=== PATIENT | male | born 1980 | race Caucasian/White ===

== ENCOUNTER 2018-09-25 04:36 | Inpatient (IN) | payer SELFPAY ==
[2018-09-25] VITALS (13 sets, daily range): BP systolic 129–170; BP diastolic 70–104
[~2018-09-25] VITALS: Ht 187.9 cm; Wt 119.7 kg
--- NOTE | ~2018-09-25 | O ---
[place], [place] OPERATIVE NOTE NAME: NBA ZUÑIGA UNIT #: [id number] ROOM: 404 DOCTOR: JERONIMO RONDON MD BIRTHDATE: [birth year] DOS: 09/25/2018 PREOPERATIVE DIAGNOSIS: Acute appendicitis. POSTOPERATIVE DIAGNOSIS: Acute appendicitis. PROCEDURE: Laparoscopic appendectomy. SURGEON: Jeronimo Rondon MD EQUAL OPPORTUNITY COUNSELOR: WINSOME. ANESTHESIA: General with endotracheal intubation. INDICATIONS: This is a 37-year-old male admitted with right lower quadrant abdominal pain and a CAT scan that showed acute appendicitis. It was decided to take the patient to the operating room for the above-mentioned procedure. The procedure and its complications were explained to the patient in detail preoperatively. Complications that were discussed included but were not limited to bleeding, infection, hematoma/seroma/abscess formation, prolonged postoperative pain, damage to lying vital structures, inadvertent injury to surrounding vital structures, incisional hernia formation and he agreed to proceed. DESCRIPTION OF PROCEDURE: After identifying the patient, the patient was brought to the operating suite and laid in the supine position. After time-out procedure was called, general anesthesia was induced and the parts were then painted and draped in the usual sterile fashion. An incision was made in a transverse fashion below the umbilicus. The skin and the subcutaneous tissue were incised in the line of the incision. The fascia was incised vertically and 2 stay sutures were taken on either side. The peritoneum was opened and a 12-mm Zaida port was introduced into the peritoneal cavity after pneumoperitoneum was created. Under direct vision, a left lower quadrant incision of 10 mm and a suprapubic incision of 5 mm were made and appropriate size ports were introduced. There were numerous adhesions between the anterior abdominal wall and omentum from previous hernia surgery and these were taken down with the help of blunt and sharp dissection. Thereafter, the appendix was visualized and held up with the help of an Endo Norman forceps. The mesoappendix and the appendicular base were then stapled across with the help of Endo-BRANDON vascular stapler (45 mm). The specimen was placed in an EndoCatch bag and removed from the peritoneal cavity. This was sent for histopathological diagnosis. Hemostasis was achieved in the region of the appendix and there was no bleeding seen. Thereafter, after hemostasis was confirmed all around, the suprapubic and the left lower quadrant ports were removed under direct vision and there was no bleeding seen. The umbilical port was also removed and the pneumoperitoneum was decompressed. Two stay sutures were tied together and an additional 0 Vicryl suture was taken to close the fascial defect. The edges of the skin were infiltrated with 1% plain lidocaine and approximated with the help of 4-0 Vicryl in a subcuticular running fashion. A Samuel catheter was removed and the patient was brought back to the recovery room in a stable fashion. There were no [place], [place] OPERATIVE NOTE NAME: NBA ZUÑIGA UNIT #: [id number] ROOM: [facility] DOCTOR: JERONIMO RONDON MD BIRTHDATE: [address] Jeronimo Rondon, the attending surgeon, was present throughout the operating case. Jeronimo Rondon MD CM:OPRECORD:OPERATIVE NOTE [id number] JERONIMO RONDON MD 09/25/18 1501 interface
--- NOTE | ~2018-09-25 | PR ---
[place], [place] PROGRESS NOTE NAME: NBA ZUÑIGA UNIT #: [id number] ROOM: 404 DOCTOR: JESSA ACOSTA MD BIRTHDATE: [birth year] DOS: 09/26/2018 SUBJECTIVE: This is a patient who has been admitted to the hospital with history of acute appendicitis and has undergone laparoscopy, appendectomy yesterday. The patient is feeling good. He denies any chest pain, no difficulty breathing, no nausea, no vomiting and is lying very comfortably in bed, but he has not passed any bowel movement and he has not passed any flatus. OBJECTIVE: VITAL SIGNS: Temperature 97.9, pulse is 80, respiration is 18, and pulse oximetry is 99%. Blood pressure is 110/70. ENT: Unremarkable. NECK: No glandular enlargement in the neck. CHEST: Clear. HEART: Regular. ABDOMEN: Soft with bowel movement present and the rest of examination normal. Advised the patient to be more active and ambulating that will help to pass his flatus. JESSA ACOSTA MD CM:PNTRANS [id number] JESSA ACOSTA MD 10/25/18 1004 interface
--- NOTE | ~2018-09-25 | WRIGHTHP ---
[place], [place] PATIENT HISTORY AND PHYSICAL EXAM NAME: NBA ZUÑIGA UNIT #: [id number] ROOM: 404 DOCTOR: JESSA ACOSTA MD BIRTHDATE: [birth year] DOS: 09/25/2018 HISTORY OF PRESENT ILLNESS: The patient has been admitted to hospital with pain in his abdomen. He started having this pain in the abdomen from last evening and it was quite severe and over the night the pain became worse. He was having severe nausea, but no vomiting. There was no diarrhea and he came to Emergency Department where on investigation, he was found to have acute appendicitis and needed to be admitted to the hospital. PAST MEDICAL HISTORY: The patient has history of hernia repair in the past, with possible history of gallstone in the past also, but no surgery done for that. ALLERGIES: The patient does not have any allergy. MEDICATIONS: He does not take any medication regularly. SOCIAL HISTORY: He does not drink, does not smoke. PHYSICAL EXAMINATION: GENERAL: The patient looks in pain. VITAL SIGNS: Temperature is 99.7, pulse is 64, respirations 18, temperature is 156/88, pulse ox was 98%. HEENT: Unremarkable. No glandular enlargement. NECK: Trachea is center. Neck veins are not distended. Carotid pulses normal. HEART: Regular, no murmur or thrills. LUNGS: Clear. No creps or rhonchi. ABDOMEN: Showing some tenderness in right lower quadrant with some rebound tenderness, no mass palpable. Bowel sounds are present. Rest of the examination is normal. LABORATORY DATA: The patient had CBC done in the Emergency Room, which showed white count 16,200, hemoglobin 6.8. Other values are normal. Comprehensive profile was fairly normal. Urine examination was also normal. CT of the abdomen showed findings compatible with acute appendicitis. Consultation was called with Dr. Rondon and Dr. Rondon has seen the patient and he advised the patient to be taken to the surgery. PLAN OF TREATMENT: The patient will be admitted to hospital to receive pain medication with IV fluid. Consult Dr. Rondon and follow his advice. [place], [place] PATIENT HISTORY AND PHYSICAL EXAM NAME: NBA ZUÑIGA UNIT #: [id number] ROOM: 404 DOCTOR: JESSA ACOSTA MD BIRTHDATE: [birth year] JESSA ACOSTA MD CM:HISPHYS:PATIENT HISTORY AND PHYSICAL EXAMINATION [id number] JESSA ACOSTA MD 10/25/18 1002 interface
[~2018-09-25 04:36] MED LIST: ANTIBIOTIC; CIPRODEX 0.3%-7.5 ML OT; FLEXERIL10 MG PO; FLEXERIL5 MG PO; IBU-8800 MG PO; PERCOCET 325 MG1 TA2 PO; TRAMADOL HCL50 MG PO; ULTRAM50 MG PO; VICODIN 5/500 505 MG PO
--- NOTE | 2018-09-25 05:15 | NUR ---
Patient prompted for urine specimen. Patient reports he can't go right now because he went prior to arrival but when he can he will utilize his call light .
[2018-09-25 05:25] LABS: BASO # 0.1 10*3/uL (0.0-0.1); BASO % 0.6 % (0.0-1.0); EOS # 0.2 10*3/uL (0.0-0.4); HEMOGLOBIN 16.8 g/dl (14.0-18.0); LYMPH # 1.5 10*3/uL (1.3-4.4); LYMPH % 9.5 % (27.0-41.0); MEAN CELL VOLUME 88.2 fl (80.0-94.0); MEAN CORPUSCULAR HGB 30.9 pg (27.0-31.0); MEAN PLATELET VOLUME 9.1 fl (9.6-12.3); MONO % 6.1 % (3.0-9.0); NEUT # 13.3 10*3/uL (2.3-7.9); NEUT % 82.2 % (47.0-73.0); PLATELET COUNT AUTOMATED 274 10*3/uL (130-400); RED BLOOD COUNT 5.44 10*6/uL (4.50-5.90); RED CELL DISTRI WIDTH 12.1 % (0-14.5); WHITE BLOOD COUNT 16.2 10*3/uL (4.8-10.8)
--- NOTE | 2018-09-25 05:28 | NUR ---
Patient reports relief from his pain. Pain originally 10/10 and after pain medication is down to a 3/10. Patient reports pain is more manageable. Call light within reach.
[2018-09-25 05:44] LABS: ALBUMIN 4.3 gm/dl (3.1-4.5); ALKALINE PHOSPHATASE 54 U/L (45-117); BUN 9 mg/dl (7-24); CHLORIDE 109 mmol/L (98-107); CREATININE 1.07 mg/dL (0.70-1.30); LIPASE 149 U/L (73-393); POTASSIUM 3.7 mmol/L (3.5-5.1); SGOT/AST 20 IU/L (3-35); SGPT/ALT 68 U/L (12-78); SODIUM 140 mmol/L (136-145); TOTAL PROTEIN 7.3 gm/dL (6.4-8.2)
[2018-09-25 06:02] LABS: BILIRUBIN NEGATIVE (NEGATIVE); BLOOD NEGATIVE (NEGATIVE); CLARITY SL CLOUDY (CLEAR); COLOR YELLOW (YELLOW); GLUCOSE NEGATIVE (NEGATIVE); KETONE NEGATIVE (NEGATIVE); LEUKO ESTERASE NEGATIVE (NEGATIVE); NITRITE NEGATIVE (NEGATIVE); PH 6.5 (5.0-9.0); SPECIFIC GRAVITY 1.015 (1.005-1.030); UROBILINOGEN 0.2 E.U./dl (0.2-1.0)
[2018-09-25 06:20] LABS: BACTERIA TRACE; EPITHELIAL CELLS 0-2; MUCOUS 1+; WBC 0-2 wbc/hpf (0-5)
--- NOTE | 2018-09-25 08:45 | NUR ---
A 37, admitted to , under the services of THAIS Ramirez MD with a diagnosis of APPENDICITIS. Chief complaint is ABDOMINAL PAIN. Patient arrived via wheel chair from ER. Monitor applied. Initial assessment completed. Vital signs taken and recorded. THAIS RAMIREZ MD notified of admission to the unit. Orders received. See assessment for past medical history, medications and allergies. Patient and/or family oriented to unit. [facility] visitation policy reviewed. Clothing/patient valuable form completed. RENAE NIEVES
--- NOTE | 2018-09-25 09:27 | NUR ---
PT TRANSPORTED OFF OF FLOOR FOR SURGERY AT THIS TIME.
--- NOTE | 2018-09-25 10:40 | NUR ---
CALLED DR THOMAS REGARDING ORDERS FOR PT. PHYSICIAN STATES THAT HE DOES NOT SEE PT REGULARLY AND TO NOTIFY DR NAVA THAT HE IS TO PUT ORDERS IN ON PT. WILL NOTIFY SURGERY AND PHYSICIAN.
--- NOTE | 2018-09-25 10:41 | NUR ---
NOTIFIED SURGERY/DR NAVA THAT ORDERS WILL NEED PUT IN ON PT AFTER SURGERY PER DR THOMAS REQUEST. DR STATES THAT HE WILL PUT ORDERS IN ONCE HE SEES PT.
--- NOTE | 2018-09-25 11:57 | NUR ---
ADMISSION ORDERS RECEIVED FROM DR. NAVA.
--- NOTE | 2018-09-25 12:28 | NUR ---
REPORT RECEIVED FROM SURGERY ON PT. PT IS EXPECTED TO RETURN TO THE FLOOR IN THE NEXT FIFTEEN MINUTES.
--- NOTE | 2018-09-25 12:38 | NUR ---
ATTEMPTED TO CALL DR ACOSTA REGARDING PT ADMISSION.
--- NOTE | 2018-09-25 12:53 | NUR ---
PT GIVEN 2 MG MORPHINE AT THIS TIME FOR ABDOMINAL PAIN. WILL MONITOR FOR EFFECTIVENESS. CALL LIGHT IN REACH.
--- NOTE | 2018-09-25 13:53 | NUR ---
MORPHINE EFFECTIVE PER PT.
--- NOTE | 2018-09-25 15:11 | NUR ---
PT GIVEN NORCO AT THIS TIME FOR C/O PAIN TO ABDOMEN. RATES PAIN A 09/15. WILL MONITOR FOR EFFECTIVENESS. CALL LIGHT IN REACH.
--- NOTE | 2018-09-25 16:11 | NUR ---
KALLI EFFECTIVE PER PT.
--- NOTE | 2018-09-25 16:40 | NUR ---
PT DIET ADVANCED TO SOFT FROM FULL LIQUID. PT TOLERATED FULL LIQUID LUNCH WELL WITH NO COMPLAINTS OF NAUSEA.
--- NOTE | 2018-09-25 19:35 | NUR ---
DIET ADVANCED TO REGULAR AT THIS TIME. PT STATES THAT HE TOLERATED SOFT DIET WELL AT DINNER AND HAS NO C/O NAUSEA.
--- NOTE | 2018-09-25 20:17 | NUR ---
ADMINISTERED PRN NORCO AND MORPHINE PRESCRIBED FOR PT COMPLAINT OF ABDOMINAL PAIN RATED A 5/10 ON THE PAIN SCALE. WILL CONTINUE TO MONITOR THE PT AND REASSESS IN AN HOUR. NO OTHER COMPLAINTS AT THIS TIME. 3 GLUED INCISIONS WERE VISUALIZED. NO SIGNS OF COMPLICATIONS. CALL LIGHT IN REACH.
--- NOTE | 2018-09-25 20:35 | NUR ---
24 HOUR CHART CHECK COMPLETE.
[2018-09-26] VITALS: BP 145/89
--- NOTE | 2018-09-26 00:16 | NUR ---
PRN MORPHINE ADMINISTERED PRESRIBED FOR PT COMPLAINT OF ABDOMINAL PAIN RATED A 4/10 ON THE PAIN SCALE. WILL CONTINUE TO MONITOR AND REASSESS IN A HALF HOUR. NO OTHER COMPLAINTS AT THIS TIME. CALL LIGHT IN REACH.
--- NOTE | 2018-09-26 00:40 | NUR ---
PT STATES THE MORPHINE WAS EFFECTIVE. WILL CONTINUE TO MONITOR.
--- NOTE | 2018-09-26 05:53 | NUR ---
PRN NORCO ADMINISTERED PRESCRIBED FOR PT COMPLAINT OF ABDOMINAL PAIN RATED A 5/10 ON THE PAIN SCALE. DANILO CONTINUE TO MONITOR THE PT AND REASSESS IN AN HOUR. NO OTHER COMPLAINTS AT THIS TIME. CALL LIGHT IN REACH.
[2018-09-26 06:30] LABS: BASO # 0.1 10*3/uL (0.0-0.1); BASO % 0.4 % (0.0-1.0); EOS # 0.1 10*3/uL (0.0-0.4); EOS % 0.7 % (1.0-4.0); LYMPH # 1.8 10*3/uL (1.3-4.4); LYMPH % 15.7 % (27.0-41.0); MEAN CORPUSCULAR HGB 30.3 pg (27.0-31.0); MEAN CORPUSCULAR HGB CONC 32.8 g/dl (33.0-37.0); MEAN PLATELET VOLUME 9.5 fl (9.6-12.3); MONO % 8.5 % (3.0-9.0); NEUT # 8.6 10*3/uL (2.3-7.9); NEUT % 74.1 % (47.0-73.0); PLATELET COUNT AUTOMATED 234 10*3/uL (130-400); RED BLOOD COUNT 4.19 10*6/uL (4.50-5.90); RED CELL DISTRI WIDTH 12.5 % (0-14.5); WHITE BLOOD COUNT 11.6 10*3/uL (4.8-10.8)
[2018-09-26 06:37] LABS: HEMATOCRIT 38.7 % (42.0-52.0); HEMOGLOBIN 12.7 g/dl (14.0-18.0); MEAN CELL VOLUME 92.4 fl (80.0-94.0)
[2018-09-26 06:40] LABS: ALBUMIN 3.4 gm/dl (3.1-4.5); ALKALINE PHOSPHATASE 39 U/L (45-117); BUN 7 mg/dl (7-24); CHLORIDE 111 mmol/L (98-107); CREATININE 0.87 mg/dL (0.70-1.30); POTASSIUM 4.1 mmol/L (3.5-5.1); SGOT/AST 10 IU/L (3-35); SGPT/ALT 42 U/L (12-78); SODIUM 141 mmol/L (136-145); TOTAL PROTEIN 6.1 gm/dL (6.4-8.2)
--- NOTE | 2018-09-26 06:47 | NUR ---
PT ASLEEP. NO SIGNS OF DISCOMFORT OR DISTRESS NOTED AT THIS TIME. WILL CONTINUE TO MONITOR.
[2018-09-26 08:00] VITALS: BP 148/81
--- NOTE | 2018-09-26 11:14 | NUR ---
PATIENT DENIES AND NEED FOR THE REGLAN AT THIS TIME, STATES HE IS EATING SOLIDS AND TOLERATING WELL.
[2018-09-26 12:00] VITALS: BP 160/89
--- NOTE | 2018-09-26 15:38 | NUR ---
Discharge instructions reviewed with patient/family. Patient receptive and verbalizes understanding. Follow-up care arranged. Written instructions given to patient/family. HEPLOCK DISCONTINUED. PRESCRIPTION GIVEN FOR NORCO. PATIENT CHOSE TO AMBULATE OFF FLOOR. PICKED UP BY . CLEO SORIANO
[2018-10-25] MEDS ORDERED: PRILOSEC20 M1 PO (13:44)
[2018-10-25] MEDS ORDERED: Motrin,Rufen800 MG PO (18:05)
== END 2018-09-26 15:38 | disposition home or self-care (01) | DRG 343 ==
LOC: ED 04:36 → EDHOLD 08:14 → 4E 08:57
PROVIDERS: Student in an Organized Health Care Education/Training Program; Surgery; ADMIT Internal Medicine
PROC: 0DTJ4ZZ Resection of Appendix, Percutaneous Endoscopic Approach (ICD-10-PCS; principal; 2018-09-25)
DX: K35.30 Acute appendicitis with localized peritonitis, without perforation or gangrene (principal)

== ENCOUNTER 2019-05-05 18:26 | Emergency (ER) | payer SELFPAY ==
[~2019-05-05] VITALS: Ht 198.1 cm; Wt 115.7 kg
[~2019-05-05 18:26] MED LIST changes: +Motrin,Rufen800 MG PO; +PRILOSEC20 M1 PO
[2019-05-05 19:42] LABS: BASO # 0.1 10*3/uL (0.0-0.1); EOS # 0.2 10*3/uL (0.0-0.4); EOS % 2.7 % (1.0-4.0); HEMATOCRIT 50.9 % (42.0-52.0); HEMOGLOBIN 17.5 g/dl (14.0-18.0); LYMPH # 1.7 10*3/uL (1.3-4.4); LYMPH % 19.2 % (27.0-41.0); MEAN CELL VOLUME 88.8 fl (80.0-94.0); MEAN CORPUSCULAR HGB 30.5 pg (27.0-31.0); MEAN CORPUSCULAR HGB CONC 34.4 g/dl (33.0-37.0); MEAN PLATELET VOLUME 9.2 fl (9.6-12.3); MONO # 0.8 10*3/uL (0.1-1.0); MONO % 9.2 % (3.0-9.0); NEUT # 5.9 10*3/uL (2.3-7.9); PLATELET COUNT AUTOMATED 251 10*3/uL (130-400); RED BLOOD COUNT 5.73 10*6/uL (4.50-5.90); RED CELL DISTRI WIDTH 12.3 % (0-14.5); WHITE BLOOD COUNT 8.9 10*3/uL (4.8-10.8)
[2019-05-05 19:51] LABS: ACT PARTIAL THROMBO TIME 23.2 SECONDS (20.0-32.1); INTERNATIONAL NORM RATIO 0.9 (2.0-3.5)
[2019-05-05 19:57] LABS: ALBUMIN 4.3 gm/dl (3.1-4.5); ALKALINE PHOSPHATASE 53 U/L (45-117); BUN 16 mg/dl (7-24); CHLORIDE 109 mmol/L (98-107); CREATININE 1.24 mg/dL (0.70-1.30); LIPASE 131 U/L (73-393); POTASSIUM 4.5 mmol/L (3.5-5.1); SGOT/AST 23 IU/L (3-35); SGPT/ALT 73 U/L (12-78); SODIUM 143 mmol/L (136-145); TOTAL PROTEIN 7.3 gm/dL (6.4-8.2)
[2019-05-05] MEDS ORDERED: PEPCID40 MG PO (20:31)
[2019-05-05] MEDS ORDERED: PRILOSEC20 M1 PO (20:31)
== END 2019-05-05 20:35 | disposition home or self-care (01) ==
LOC: ED 18:26
PROVIDERS: Internal Medicine
DX: K27.9 Peptic ulcer, site unspecified, unspecified as acute or chronic, without hemorrhage or perforation (principal)

== ENCOUNTER 2020-06-09 20:04 | Emergency (ER) | payer OTHER ==
[~2020-06-09] VITALS: Ht 203.2 cm; Wt 113.4 kg
[~2020-06-09 20:04] MED LIST changes: +PEPCID40 MG PO
[2020-06-09] MEDS ORDERED: LISINOPRIL-HCT1 EACH PO (20:18)
[2020-06-09] MEDS ORDERED: ROBAXIN-750750 MG PO (21:24)
[2020-06-09] MEDS ORDERED: NAPROSYN500 MG PO (21:24)
== END 2020-06-09 21:38 | disposition home or self-care (01) ==
LOC: ED 20:04
DX: S16.1XXA Strain of muscle, fascia and tendon at neck level, initial encounter (principal); Z79.899 Other long term (current) drug therapy; Z90.49 Acquired absence of other specified parts of digestive tract; V89.2XXA Person injured in unspecified motor-vehicle accident, traffic, initial encounter; Y93.89 Activity, other specified; Y92.89 Other specified places as the place of occurrence of the external cause; Y99.8 Other external cause status